=== PATIENT | female | born 1955 | race Caucasian/White ===

== ENCOUNTER 2020-03-02 15:34 | Inpatient (IN) | payer BC ==
[~2020-03-02] VITALS: Ht 165.1 cm; Wt 68.4 kg
[2020-03-02 16:03] LABS: BASOPHILS # (AUTO) 0.1 X10'3 (0-0.2); BASOPHILS % (AUTO) 0.7 % (0-1); EOSINOPHILS # (AUTO) 0.2 X10'3 (0-0.9); EOSINOPHILS % (AUTO) 2.1 % (0-6); HEMATOCRIT 44.9 % (35.0-45.0); LYMPHOCYTES # (AUTO) 2.9 X10'3 (1.1-4.8); LYMPHOCYTES % (AUTO) 30.7 % (21-51); MEAN CORPUSCULAR HGB CONC 33.3 g/dL (33.0-36.5); MEAN CORPUSCULAR VOLUME 90.1 FL (78-98); MEAN PLATELET VOLUME 8.2 FL (7.4-10.4); MONOCYTES # (AUTO) 0.5 X10'3 (0-0.9); NEUTROPHILS # (AUTO) 5.9 X10'3 (1.8-7.7); NEUTROPHILS % (AUTO) 61.5 % (42-75); PLATELET COUNT 298 X10'3 (140-440); RED BLOOD COUNT 4.99 X10'6 (4.20-5.60); RED CELL DISTRIBUTION WIDTH 14.1 % (11.5-14.5); WHITE BLOOD COUNT 9.5 X10'3 (4.5-11.0)
[2020-03-02 16:10] LABS: PARTIAL THROMBOPLASTIN TIME 27 SECONDS (22-32)
[2020-03-02 16:12] LABS: ALANINE AMINOTRANSFERASE 18 U/L (12-78); ALBUMIN 4.4 G/DL (3.4-5.0); ALBUMIN/GLOBULIN RATIO 1.3 (1.1-1.5); ALKALINE PHOSPHATASE 69 IU/L (46-116); ANION GAP 12 (8-16); ASPARTATE AMINO TRANSFERASE 14 U/L (10-37); BILIRUBIN,TOTAL 0.8 MG/DL (0.1-1.0); BLOOD UREA NITROGEN 10 MG/DL (7-18); BUN/CREATININE RATIO 13.5 (6.6-38.0); CALCIUM 9.8 MG/DL (8.5-10.1); CHLORIDE 105 MMOL/L (99-107); CREATININE 0.74 MG/DL (0.40-0.90); GLUCOSE 90 MG/DL (70-104); POTASSIUM 3.4 MMOL/L (3.5-5.1); SODIUM 144 MMOL/L (135-145); TOTAL CARBON DIOXIDE 27.4 MMOL/L (24-32); TOTAL PROTEIN 7.9 G/DL (6.4-8.2); eGFR 79 ML/MIN
[2020-03-02 16:15] LABS: TROPONIN I < 0.04 NG/ML (0.0-0.05)
[2020-03-02] MEDS ORDERED: aspirin 325mg tablet PO ONE (16:55)
[2020-03-02] MEDS ORDERED: atorvastatin 20mg tablet PO ONE (16:55)
--- NOTE | 2020-03-02 17:42 | NUR ---
Pt able to swallow with some difficulties, however no signs of aspiration. Pills crushed and mixed into applesauce which pt tolerated well.
[2020-03-02] MEDS ORDERED: HYDROcodone/acetaminophen 5mg/325mg tablet PO PRN (18:30)
[2020-03-02] MEDS ORDERED: magnesium hydroxide 30ml (MOM) UD suspension PO PRN (18:30)
[2020-03-02] MEDS ORDERED: magnesium 4gm in 100ml NS 100 ML IV PRN (18:30)
[2020-03-02] MEDS ORDERED: morphine 2 MG/ML inj. syringe IV PRN ×2 (18:30)
[2020-03-02] MEDS ORDERED: HYDROcodone/acetaminophen 10/325mg tab PO PRN (18:30)
[2020-03-02] MEDS ORDERED: acetaminophen 650mg rectal suppository RC PRN (18:30)
[2020-03-02] MEDS ORDERED: acetaminophen 325mg tablet PO PRN ×2 (18:30)
[2020-03-02] MEDS ORDERED: mag hydrox/Alum hydrox/simeth 30ml oral suspension PO PRN (18:30)
[2020-03-02] MEDS ORDERED: ondansetron/PF 4mg/2ml inj IV PRN (18:30)
[2020-03-02] MEDS ORDERED: magnesium 2GM in 50ml NS 50 ML IV PRN (18:30)
[2020-03-02] MEDS ORDERED: magnesium Cl slow-release 64mg tablet PO PRN (18:30)
[2020-03-02] MEDS ORDERED: bisacodyl 10mg suppository rectal RC PRN (18:30)
[2020-03-02] MEDS ORDERED: diphenhydrAMINE 25mg capsule PO PRN (18:30)
[2020-03-02] MEDS ORDERED: potassium CL 10mEq/100ml bag 100 ML IV PRN ×2 (18:30)
[2020-03-02] MEDS ORDERED: potassium Cl 20 mEq SR tablet PO PRN ×2 (18:30)
[2020-03-02 18:53] LABS: CLARITY,URINE SLIGHTLY CLOUDY (Clear); COLOR,URINE YELLOW (Yellow); GLUCOSE, URINE NEGATIVE (Neg); KETONES,URINE 15 mg/dl (Neg); LEUKOCYTE ESTERASE ,URINE SMALL (Neg); NITRITES, URINE NEGATIVE (Neg); OCCULT BLOOD,URINE TRACE-INTACT (Neg); PH,URINE 5.5 (4.8-8.0); PROTEIN,URINE NEGATIVE (Neg); UROBILINOGEN,URINE 0.2 E.U/dL (0.2-1.0)
[2020-03-02 18:54] LABS: UA COLLECTION TYPE CLN CATCH MIDSTREAM
[2020-03-02 19:10] LABS: CHOL/HDL RATIO 4.1 (0.00-4.99); CHOLESTEROL 286 MG/DL (0-200); HDL CHOLESTEROL 69 MG/DL (35-60); LDL CHOLESTEROL 179 MG/DL (50-100); TRIGLYCERIDES 96 MG/DL (20-135)
[2020-03-02 19:12] LABS: SQUAMOUS EPITHELIAL CELL,UR MANY /LPF (FEW)
[2020-03-02 19:13] LABS: BACTERIA,URINE 1+ /HPF (Neg); HYALINE CASTS 0-3 /LPF (NEGATIVE); RBC,URINE 0-2 /HPF (0-2)
[2020-03-02 19:14] LABS: WBC,URINE 0-4 /HPF (0-4)
[2020-03-02 19:16] LABS: HEMOGLOBIN A1C 5.7 % (4.5-6.2)
[2020-03-02] MEDS: normal saline 1000ml 1,000 ML IV SCH (19:37)
[2020-03-02] MEDS: K and/or MAG REPLACEMENT MC SCH (20:00)
[2020-03-02] MEDS: heparin, porcine 5000 units/ml vial SQ SCH (21:08)
[2020-03-03] MEDS ORDERED: LISI-600 PO (06:10)
--- NOTE | 2020-03-03 06:34 | NUR ---
swallow eval done again at this time,patient with delayed gag reflex when tongue depressor placed to posterior tongue,will notify
[2020-03-03 06:57] LABS: BASOPHILS # (AUTO) 0.1 X10'3 (0-0.2); BASOPHILS % (AUTO) 1.3 % (0-1); EOSINOPHILS # (AUTO) 0.2 X10'3 (0-0.9); EOSINOPHILS % (AUTO) 3.9 % (0-6); HEMATOCRIT 39.8 % (35.0-45.0); HEMOGLOBIN 13.2 g/dl (12.0-16.0); LYMPHOCYTES # (AUTO) 2.4 X10'3 (1.1-4.8); LYMPHOCYTES % (AUTO) 38.8 % (21-51); MEAN CORPUSCULAR HEMOGLOBIN 30.1 PG (27.0-31.0); MEAN CORPUSCULAR HGB CONC 33.2 g/dL (33.0-36.5); MEAN CORPUSCULAR VOLUME 90.9 FL (78-98); MEAN PLATELET VOLUME 8.2 FL (7.4-10.4); MONOCYTES # (AUTO) 0.4 X10'3 (0-0.9); MONOCYTES % (AUTO) 6.9 % (2-12); NEUTROPHILS % (AUTO) 49.1 % (42-75); PLATELET COUNT 240 X10'3 (140-440); RED BLOOD COUNT 4.38 X10'6 (4.20-5.60); RED CELL DISTRIBUTION WIDTH 14.1 % (11.5-14.5); WHITE BLOOD COUNT 6.2 X10'3 (4.5-11.0)
--- NOTE | 2020-03-03 07:42 | NUR ---
st paged to eval patient.
[2020-03-03] MEDS: heparin, porcine 5000 units/ml vial SQ SCH ×2 (07:50→19:43)
[2020-03-03] MEDS: atorvastatin 20mg tablet PO SCH (07:50)
[2020-03-03] MEDS: aspirin 81mg tablet.DR PO SCH (07:50)
[2020-03-03] MEDS: normal saline 1000ml 1,000 ML IV SCH ×2 (07:50→12:02)
[2020-03-03 07:59] LABS: ALANINE AMINOTRANSFERASE 16 U/L (12-78); ALBUMIN 3.7 G/DL (3.4-5.0); ALBUMIN/GLOBULIN RATIO 1.3 (1.1-1.5); ALKALINE PHOSPHATASE 61 IU/L (46-116); ANION GAP 8 (8-16); ASPARTATE AMINO TRANSFERASE 13 U/L (10-37); BILIRUBIN,TOTAL 0.8 MG/DL (0.1-1.0); BLOOD UREA NITROGEN 9 MG/DL (7-18); BUN/CREATININE RATIO 13.4 (6.6-38.0); CALCIUM 9.2 MG/DL (8.5-10.1); CHLORIDE 109 MMOL/L (99-107); CHOL/HDL RATIO 3.9 (0.00-4.99); CHOLESTEROL 224 MG/DL (0-200); CREATININE 0.67 MG/DL (0.40-0.90); GLUCOSE 82 MG/DL (70-104); HDL CHOLESTEROL 58 MG/DL (35-60); LDL CHOLESTEROL 149 MG/DL (50-100); MAGNESIUM 1.8 MG/DL (1.5-2.4); PHOSPHORUS 3.7 MG/DL (2.3-4.5); POTASSIUM 3.8 MMOL/L (3.5-5.1); SODIUM 146 MMOL/L (135-145); TOTAL CARBON DIOXIDE 29.4 MMOL/L (24-32); TOTAL PROTEIN 6.6 G/DL (6.4-8.2); TRIGLYCERIDES 80 MG/DL (20-135); eGFR 89 ML/MIN
[2020-03-03] MEDS: K and/or MAG REPLACEMENT MC SCH ×2 (08:00→19:40)
[2020-03-03] MEDS: CefTRIAXone/D5W-Rocephin 1gm 50 ML IV SCH (12:00)
[2020-03-03] MEDS: pantoprazole 40 MG vial IV SCH (12:00)
--- NOTE | 2020-03-03 15:24 | NUR ---
Patient in room ED 9. I have received report from Marlena AGUIAR, in the Ed and had the opportunity to ask questions and assume patient care.
[2020-03-03 16:08] VITALS: BP 139/71
[2020-03-03 18:00] VITALS: BP 132/66
--- NOTE | 2020-03-03 18:25 | NUR ---
Problems reprioritized. Patient report given, questions answered & plan of care reviewed with
[2020-03-03 22:00] VITALS: BP 141/66
[2020-03-04] VITALS (20 sets, daily range): BP systolic 80–142; BP diastolic 37–106
[2020-03-04 06:22] LABS: BASOPHILS # (AUTO) 0.1 X10'3 (0-0.2); EOSINOPHILS # (AUTO) 0.2 X10'3 (0-0.9); EOSINOPHILS % (AUTO) 2.3 % (0-6); HEMATOCRIT 38.7 % (35.0-45.0); HEMOGLOBIN 12.9 g/dl (12.0-16.0); LYMPHOCYTES # (AUTO) 2.3 X10'3 (1.1-4.8); MEAN CORPUSCULAR HEMOGLOBIN 30.7 PG (27.0-31.0); MEAN CORPUSCULAR HGB CONC 33.5 g/dL (33.0-36.5); MEAN CORPUSCULAR VOLUME 91.8 FL (78-98); MEAN PLATELET VOLUME 8.5 FL (7.4-10.4); MONOCYTES # (AUTO) 0.5 X10'3 (0-0.9); MONOCYTES % (AUTO) 6.2 % (2-12); NEUTROPHILS % (AUTO) 61.5 % (42-75); PLATELET COUNT 218 X10'3 (140-440); RED BLOOD COUNT 4.21 X10'6 (4.20-5.60); RED CELL DISTRIBUTION WIDTH 14.1 % (11.5-14.5); WHITE BLOOD COUNT 8.1 X10'3 (4.5-11.0)
--- NOTE | 2020-03-04 06:24 | NUR ---
Problems reprioritized. Patient report given, questions answered & plan of care reviewed with COSME Bustos.
[2020-03-04 06:36] LABS: ALANINE AMINOTRANSFERASE 13 U/L (12-78); ALBUMIN 3.3 G/DL (3.4-5.0); ALBUMIN/GLOBULIN RATIO 1.3 (1.1-1.5); ALKALINE PHOSPHATASE 53 IU/L (46-116); ANION GAP 13 (8-16); ASPARTATE AMINO TRANSFERASE 13 U/L (10-37); BILIRUBIN,TOTAL 0.7 MG/DL (0.1-1.0); BLOOD UREA NITROGEN 10 MG/DL (7-18); BUN/CREATININE RATIO 15.6 (6.6-38.0); CALCIUM 8.9 MG/DL (8.5-10.1); CHLORIDE 108 MMOL/L (99-107); CREATININE 0.64 MG/DL (0.40-0.90); GLUCOSE 63 MG/DL (70-104); MAGNESIUM 1.8 MG/DL (1.5-2.4); PHOSPHORUS 3.5 MG/DL (2.3-4.5); POTASSIUM 3.7 MMOL/L (3.5-5.1); SODIUM 144 MMOL/L (135-145); TOTAL CARBON DIOXIDE 23.5 MMOL/L (24-32); TOTAL PROTEIN 5.9 G/DL (6.4-8.2); eGFR > 90 ML/MIN
--- NOTE | 2020-03-04 06:57 | NUR ---
Patient in room MED 310. I have received report from COSME Tenorio and had the opportunity to ask questions and assume patient care.
[2020-03-04] MEDS: CefTRIAXone/D5W-Rocephin 1gm 50 ML IV SCH (07:36)
[2020-03-04] MEDS: atorvastatin 20mg tablet PO SCH (07:36)
[2020-03-04] MEDS: pantoprazole 40 MG vial IV SCH (07:36)
[2020-03-04] MEDS: K and/or MAG REPLACEMENT MC SCH ×2 (08:00→19:53)
[2020-03-04] MEDS: heparin, porcine 5000 units/ml vial SQ SCH (08:00)
[2020-03-04] MEDS: aspirin 81mg tablet.DR PO SCH (08:00)
[2020-03-04] MEDS ORDERED: LIDOcaine Viscous 15ml cup ONE (08:29)
[2020-03-04] MEDS ORDERED: fentaNYL/PF 50MCG/1 ML 2ML syringe ONE (08:29)
[2020-03-04] MEDS ORDERED: MIDAZolam 5mg/5ml vial ONE (08:29)
[2020-03-04] MEDS: normal saline 1000ml 1,000 ML IV SCH (10:30)
--- NOTE | 2020-03-04 14:32 | NUR ---
Pt admit with difficulty swallowing and c/o slurred speech x6 months and not eating well. Per [employer] DEVELOPER note lateral video swallow study performed and showed she has multiple swallow attempts, delayed swallow, and unable to clear valleculae; recommends NPO with possible alternative nutrition. EGD done, small hiatal hernia found with "no structural abnormalities in the hypopharynx or esophagus that would explain the patient's dysphagia" and possible neurologic origin, pt pending MRI, all per MD note. Recommend: 1. IF to receive a PEG for nutrition would recommend Jevity 1.2 at 70 ml/hr. 2. wt per rx 2. bowel care as needed 3. weight per rx Addendum: 03/04/20 at [address] Amended: Links added.
[2020-03-04 17:28] LABS: PARTIAL THROMBOPLASTIN TIME 28 SECONDS (22-32)
--- NOTE | 2020-03-04 18:31 | NUR ---
Problems reprioritized. Patient report given, questions answered & plan of care reviewed with COSME Hobbs.
--- NOTE | 2020-03-04 18:39 | NUR ---
Patient in room MED 310. I have received report from Juli AGUIAR and had the opportunity to ask questions and assume patient care.
[2020-03-04] MEDS ORDERED: dextrose 50%-water 50ml dispensing syringe IV ONE (19:50)
[2020-03-04] MEDS: dextrose 5%-1/2 normal saline 1,000 ML IV SCH (20:10)
[2020-03-05] VITALS (21 sets, daily range): BP systolic 124–152; BP diastolic 65–88
--- NOTE | 2020-03-05 06:32 | NUR ---
Problems reprioritized. Patient report given, questions answered & plan of care reviewed with Tanya AGUIAR.
[2020-03-05 07:17] LABS: BASOPHILS % (AUTO) 0.4 % (0-1); EOSINOPHILS # (AUTO) 0.2 X10'3 (0-0.9); EOSINOPHILS % (AUTO) 2.6 % (0-6); HEMATOCRIT 37.5 % (35.0-45.0); HEMOGLOBIN 12.5 g/dl (12.0-16.0); LYMPHOCYTES # (AUTO) 1.9 X10'3 (1.1-4.8); LYMPHOCYTES % (AUTO) 22.4 % (21-51); MEAN CORPUSCULAR HEMOGLOBIN 30.1 PG (27.0-31.0); MEAN CORPUSCULAR HGB CONC 33.3 g/dL (33.0-36.5); MEAN CORPUSCULAR VOLUME 90.3 FL (78-98); MEAN PLATELET VOLUME 8.4 FL (7.4-10.4); MONOCYTES # (AUTO) 0.7 X10'3 (0-0.9); MONOCYTES % (AUTO) 8.2 % (2-12); NEUTROPHILS # (AUTO) 5.8 X10'3 (1.8-7.7); NEUTROPHILS % (AUTO) 66.4 % (42-75); PLATELET COUNT 230 X10'3 (140-440); RED BLOOD COUNT 4.15 X10'6 (4.20-5.60); RED CELL DISTRIBUTION WIDTH 13.7 % (11.5-14.5); WHITE BLOOD COUNT 8.7 X10'3 (4.5-11.0)
[2020-03-05 07:41] LABS: ALANINE AMINOTRANSFERASE 14 U/L (12-78); ALBUMIN 3.2 G/DL (3.4-5.0); ALBUMIN/GLOBULIN RATIO 1.2 (1.1-1.5); ALKALINE PHOSPHATASE 53 IU/L (46-116); ANION GAP 9 (8-16); ASPARTATE AMINO TRANSFERASE 10 U/L (10-37); BILIRUBIN,TOTAL 0.9 MG/DL (0.1-1.0); BLOOD UREA NITROGEN 7 MG/DL (7-18); BUN/CREATININE RATIO 10.3 (6.6-38.0); CALCIUM 8.9 MG/DL (8.5-10.1); CHLORIDE 109 MMOL/L (99-107); CREATININE 0.68 MG/DL (0.40-0.90); GLUCOSE 90 MG/DL (70-104); MAGNESIUM 1.6 MG/DL (1.5-2.4); PHOSPHORUS 3.1 MG/DL (2.3-4.5); POTASSIUM 3.4 MMOL/L (3.5-5.1); SODIUM 144 MMOL/L (135-145); TOTAL CARBON DIOXIDE 26.1 MMOL/L (24-32); TOTAL PROTEIN 5.9 G/DL (6.4-8.2); eGFR 87 ML/MIN
[2020-03-05] MEDS: atorvastatin 20mg tablet PO SCH (08:00)
[2020-03-05] MEDS: aspirin 81mg tablet.DR PO SCH (08:00)
[2020-03-05] MEDS: K and/or MAG REPLACEMENT MC SCH ×2 (08:00→20:00)
[2020-03-05] MEDS: pantoprazole 40 MG vial IV SCH (08:00)
[2020-03-05] MEDS: dextrose 5%-1/2 normal saline 1,000 ML IV SCH ×2 (09:10→22:30)
[2020-03-05] MEDS ORDERED: fentaNYL/PF 50MCG/1 ML 2ML syringe ONE (09:51)
[2020-03-05] MEDS ORDERED: MIDAZolam 5mg/5ml vial ONE (09:51)
[2020-03-05] MEDS ORDERED: LIDOcaine Viscous 15ml cup ONE (09:51)
--- NOTE | 2020-03-05 12:44 | NUR ---
(02/22): TF consult: Pt s/p PEG placement today which can be used in 4 hours if pt is afebrile and is not having severe abdominal pain per MD note. TF recommendations below. Will continue to follow closely. (03/04): Pt admit with difficulty swallowing and c/o slurred speech x6 months and not eating well. 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 EGD done, small hiatal hernia found with "no structural abnormalities in the hypopharynx or esophagus that would explain the patient's dysphagia" and possible neurologic origin, pt pending MRI, all per MD note. Recommend: 1. Continuous TF via PEG using Jevity 1.2 with goal rate of 70 mL/hr. To begin at 30 mL/hr and advance by 20 mL Q8H as tolerated to goal rate. To provide: 1680 mL total volume/day, 2016 kcal, 93 g protein, and 1356 mL water 2. Additional 110 mL water flush Q4H 3. Prealbumin q Saturday/; daily weights 4. bowel care per rx HOME PEG BOLUS FEEDING RECS: 1. Bolus feedings using Jevity 1.5 or equivalent with goal rate of 340 mL four times a day. To begin at 120 mL/bolus and advance by 50 mL each bolus as tolerated until goal rate is met. Additional 70 mL water flush before and after each bolus feed 2. Additional 440 mL water daily 3. Outpatient RD to titrate to goal rate and make adjustments as needed according to patient's estimated nutrient needs Addendum: 03/05/20 at [address] Amended: Links added.
[2020-03-05] MEDS ORDERED: acetaminophen 325mg tablet PEG PRN ×2 (14:27→14:28)
[2020-03-05] MEDS ORDERED: mag hydrox/Alum hydrox/simeth 30ml oral suspension PEG PRN (14:29)
[2020-03-05] MEDS ORDERED: magnesium hydroxide 30ml (MOM) UD suspension PEG PRN (14:30)
[2020-03-05] MEDS ORDERED: potassium Cl 20 mEq SR tablet PEG PRN ×2 (14:30)
[2020-03-05] MEDS: CefTRIAXone/D5W-Rocephin 1gm 50 ML IV SCH (14:35)
[2020-03-05] MEDS ORDERED: diphenhydrAMINE 25 MG/10 ML UD oral solution PEG PRN (15:00)
--- NOTE | 2020-03-05 18:21 | NUR ---
1300 Pt did not get an BG check at GI LAB
[2020-03-05] MEDS ORDERED: magnesium Cl slow-release 64mg tablet PO PRN (20:25)
[2020-03-05] MEDS ORDERED: magnesium 4gm in 100ml NS 100 ML IV PRN (20:25)
[2020-03-05] MEDS ORDERED: potassium Cl 40MEQ/1/2NS 520ml 520 ML IV PRN (20:25)
[2020-03-05] MEDS ORDERED: potassium Cl 20 mEq SR tablet PO PRN (20:25)
[2020-03-05] MEDS: potassium Cl 20 mEq SR tablet PO PRN (21:03)
[2020-03-05] MEDS: lactobacillus rhamnosus 10,000 MMU CELLS/CAPSULE PO SCH (21:04)
[2020-03-05] MEDS: atorvastatin 20mg tablet PEG SCH (21:05)
[2020-03-06] MEDS: potassium Cl 20 mEq SR tablet PO PRN (00:45)
[2020-03-06 02:00] VITALS: BP 118/56
[2020-03-06 06:41] LABS: BASOPHILS % (AUTO) 0.3 % (0-1); EOSINOPHILS # (AUTO) 0.1 X10'3 (0-0.9); EOSINOPHILS % (AUTO) 0.4 % (0-6); HEMATOCRIT 38.3 % (35.0-45.0); HEMOGLOBIN 13.1 g/dl (12.0-16.0); LYMPHOCYTES # (AUTO) 2.1 X10'3 (1.1-4.8); LYMPHOCYTES % (AUTO) 12.3 % (21-51); MEAN CORPUSCULAR HEMOGLOBIN 30.7 PG (27.0-31.0); MEAN CORPUSCULAR HGB CONC 34.3 g/dL (33.0-36.5); MEAN CORPUSCULAR VOLUME 89.6 FL (78-98); MEAN PLATELET VOLUME 8.5 FL (7.4-10.4); MONOCYTES # (AUTO) 0.8 X10'3 (0-0.9); MONOCYTES % (AUTO) 4.5 % (2-12); NEUTROPHILS # (AUTO) 13.9 X10'3 (1.8-7.7); NEUTROPHILS % (AUTO) 82.5 % (42-75); PLATELET COUNT 226 X10'3 (140-440); RED BLOOD COUNT 4.27 X10'6 (4.20-5.60); RED CELL DISTRIBUTION WIDTH 13.8 % (11.5-14.5); WHITE BLOOD COUNT 16.9 X10'3 (4.5-11.0)
[2020-03-06 07:04] LABS: ALANINE AMINOTRANSFERASE 19 U/L (12-78); ALBUMIN 3.3 G/DL (3.4-5.0); ALBUMIN/GLOBULIN RATIO 1.1 (1.1-1.5); ALKALINE PHOSPHATASE 54 IU/L (46-116); ANION GAP 8 (8-16); ASPARTATE AMINO TRANSFERASE 20 U/L (10-37); BILIRUBIN,TOTAL 0.8 MG/DL (0.1-1.0); BLOOD UREA NITROGEN 5 MG/DL (7-18); BUN/CREATININE RATIO 8.3 (6.6-38.0); CALCIUM 9.2 MG/DL (8.5-10.1); CHLORIDE 108 MMOL/L (99-107); GLUCOSE 145 MG/DL (70-104); MAGNESIUM 1.6 MG/DL (1.5-2.4); PHOSPHORUS 2.5 MG/DL (2.3-4.5); POTASSIUM 3.5 MMOL/L (3.5-5.1); SODIUM 143 MMOL/L (135-145); TOTAL CARBON DIOXIDE 27.3 MMOL/L (24-32); TOTAL PROTEIN 6.3 G/DL (6.4-8.2); eGFR > 90 ML/MIN
[2020-03-06 07:38] VITALS: BP 149/76
[2020-03-06] MEDS: K and/or MAG REPLACEMENT MC SCH ×4 (07:47→20:00)
[2020-03-06] MEDS: CefTRIAXone/D5W-Rocephin 1gm 50 ML IV SCH (08:47)
[2020-03-06] MEDS: pantoprazole 40 MG vial IV SCH (08:47)
[2020-03-06] MEDS: lactobacillus rhamnosus 10,000 MMU CELLS/CAPSULE PO SCH (08:57)
[2020-03-06] MEDS: aspirin 81mg tab.chew PEG SCH ×2 (08:57→11:30)
[2020-03-06 11:00] VITALS: BP 128/67
--- NOTE | 2020-03-06 11:21 | NUR ---
PAGER ID: [phone] MESSAGE: [id number] Chris tube feed at goal, change or dc dextrose iv fluid? CESAR [id number]
[2020-03-06] MEDS: lactobacillus rhamnosus 10,000 MMU CELLS/CAPSULE GT SCH ×2 (11:30→21:36)
[2020-03-06] MEDS: dextrose 5%-1/2 normal saline 1,000 ML IV SCH (11:50)
[2020-03-06 18:00] VITALS: BP 139/79
--- NOTE | 2020-03-06 18:35 | NUR ---
Report to Day AGUIAR
[2020-03-06] MEDS: atorvastatin 20mg tablet PEG SCH (21:36)
[2020-03-06 22:00] VITALS: BP 131/75
[2020-03-07 02:00] VITALS: BP 132/64
[2020-03-07] MEDS: dextrose 5%-1/2 normal saline 1,000 ML IV SCH ×3 (04:02→17:24)
[2020-03-07 06:00] VITALS: BP 103/57
[2020-03-07 06:21] LABS: BASOPHILS % (AUTO) 0.4 % (0-1); EOSINOPHILS # (AUTO) 0.2 X10'3 (0-0.9); EOSINOPHILS % (AUTO) 2.1 % (0-6); HEMATOCRIT 36.7 % (35.0-45.0); HEMOGLOBIN 12.5 g/dl (12.0-16.0); LYMPHOCYTES # (AUTO) 2.3 X10'3 (1.1-4.8); LYMPHOCYTES % (AUTO) 24.4 % (21-51); MEAN CORPUSCULAR HEMOGLOBIN 30.7 PG (27.0-31.0); MEAN CORPUSCULAR VOLUME 90.4 FL (78-98); MEAN PLATELET VOLUME 8.8 FL (7.4-10.4); MONOCYTES # (AUTO) 0.7 X10'3 (0-0.9); MONOCYTES % (AUTO) 7.5 % (2-12); NEUTROPHILS # (AUTO) 6.2 X10'3 (1.8-7.7); NEUTROPHILS % (AUTO) 65.6 % (42-75); PLATELET COUNT 219 X10'3 (140-440); RED BLOOD COUNT 4.06 X10'6 (4.20-5.60); WHITE BLOOD COUNT 9.5 X10'3 (4.5-11.0)
[2020-03-07 06:38] LABS: ALANINE AMINOTRANSFERASE 24 U/L (12-78); ALKALINE PHOSPHATASE 52 IU/L (46-116); ANION GAP 6 (8-16); ASPARTATE AMINO TRANSFERASE 22 U/L (10-37); BILIRUBIN,TOTAL 0.7 MG/DL (0.1-1.0); BLOOD UREA NITROGEN 7 MG/DL (7-18); BUN/CREATININE RATIO 10.9 (6.6-38.0); CALCIUM 9.1 MG/DL (8.5-10.1); CHLORIDE 108 MMOL/L (99-107); CREATININE 0.64 MG/DL (0.40-0.90); GLUCOSE 113 MG/DL (70-104); MAGNESIUM 1.6 MG/DL (1.5-2.4); POTASSIUM 3.2 MMOL/L (3.5-5.1); PREALBUMIN 10.7 MG/DL (19-36); SODIUM 144 MMOL/L (135-145); TOTAL CARBON DIOXIDE 29.7 MMOL/L (24-32); TOTAL PROTEIN 6.1 G/DL (6.4-8.2); eGFR > 90 ML/MIN
--- NOTE | 2020-03-07 07:02 | NUR ---
Patient in room PCU 3026. I have received report from COSME KHAN and had the opportunity to ask questions and assume patient care.
[2020-03-07] MEDS: K and/or MAG REPLACEMENT MC SCH ×3 (08:00→20:00)
[2020-03-07] MEDS: lactobacillus rhamnosus 10,000 MMU CELLS/CAPSULE GT SCH ×2 (08:44→20:16)
[2020-03-07] MEDS: pantoprazole 40 MG vial IV SCH (08:45)
[2020-03-07] MEDS: aspirin 81mg tab.chew PEG SCH (08:45)
[2020-03-07] MEDS: CefTRIAXone/D5W-Rocephin 1gm 50 ML IV SCH (08:45)
[2020-03-07] MEDS ORDERED: POTASSIUM BICARB 20meq eff tab 20 MEQ TABLET.EFF PO PRN (10:10)
[2020-03-07] MEDS: POTASSIUM BICARB 20meq eff tab 20 MEQ TABLET.EFF PO PRN ×3 (10:25→20:17)
[2020-03-07 11:00] VITALS: BP 127/81
[2020-03-07 15:00] VITALS: BP 106/65
--- NOTE | 2020-03-07 15:42 | NUR ---
DREW TC: Pt needs to be transitioned to bolus feeds this admit prior to discharge home to ensure tolerance and MD requests RD recs. Noted wt change from initial 75kg bed scale to current 65.8kg bed scale appearing more consistent at this time; will use for TF recs. Prior TF consult remains active; MD notified of updated bolus recs and home recs below. QUINCY d/w RN regarding updated TF recs and pt home TF recs placed in chart. Pt previously tolerating continuous TF w/ GRV WNL. Na 144 w/ 110ml Q4 free water w/ continuous feeds though currently at 50ml/hr and not yet at goal. Pt also receiving D5/NS at 75ml/hr. LBM 03/02; QUINCY [employer] regarding routine bowel care this admit. First PALB result 10.7. Will monitor for TF tolerance and additional protein/hydration needs. Recommend: 1. Bolus TF via PEG QID at 800, 1200, 1600, and 2000 using Jevity 1.2 at 345ml bolus goal. Initiate at 120ml bolus and advance 75ml per bolus to goal as tolerated. Water flush 75ml before and after each bolus. In total; to provide 1380ml volume, 1656 kcals, 1718ml free water, and 77g protein. 2. routine bowel care 3. Prealbumin q Saturday/; daily weights 4. monitor for bolus EN tolerance and additional hydration needs pending serum Na and PALB HOME PEG BOLUS FEEDING RECS: 1. Bolus feedings using Jevity 1.5 or equivalent with goal rate of 340 mL four times a day. To begin at 120 mL/bolus and advance by 50 mL each bolus as tolerated until goal rate is met. Additional 70 mL water flush before and after each bolus feed 2. Additional 440 mL water daily 3. Outpatient RD to titrate to goal rate and make adjustments as needed according to patient's estimated nutrient needs Addendum: 03/07/20 at [address] Amended: Links added.
[2020-03-07 18:00] VITALS: BP 106/61
--- NOTE | 2020-03-07 18:35 | NUR ---
Problems reprioritized. Patient report given, questions answered & plan of care reviewed with COSME JOSE.
[2020-03-07] MEDS: atorvastatin 20mg tablet PEG SCH (20:17)
[2020-03-07 22:00] VITALS: BP 109/52
[2020-03-08 02:00] VITALS: BP 98/52
[2020-03-08 06:00] VITALS: BP 114/59
--- NOTE | 2020-03-08 06:19 | NUR ---
Patient in room PCU 3026. I have received report from gordy sanders and had the opportunity to ask questions and assume patient care.
--- NOTE | 2020-03-08 06:21 | NUR ---
Report given to Stepan AGUIAR.
[2020-03-08] MEDS: dextrose 5%-1/2 normal saline 1,000 ML IV SCH ×2 (06:45→20:46)
[2020-03-08 07:33] LABS: MAGNESIUM 1.7 MG/DL (1.5-2.4)
[2020-03-08] MEDS: K and/or MAG REPLACEMENT MC SCH ×2 (08:00→20:00)
[2020-03-08] MEDS: pantoprazole 40 MG vial IV SCH (09:06)
[2020-03-08] MEDS: lactobacillus rhamnosus 10,000 MMU CELLS/CAPSULE GT SCH ×2 (09:06→20:21)
[2020-03-08] MEDS: CefTRIAXone/D5W-Rocephin 1gm 50 ML IV SCH (09:06)
[2020-03-08] MEDS: aspirin 81mg tab.chew PEG SCH (09:08)
[2020-03-08] MEDS ORDERED: ASPI-1265 PEG (10:40)
[2020-03-08] MEDS ORDERED: ATOR20TA66 PEG (10:40)
[2020-03-08 11:00] VITALS: BP 118/48
[2020-03-08 15:00] VITALS: BP 130/71
[2020-03-08 18:00] VITALS: BP 109/58
--- NOTE | 2020-03-08 18:13 | NUR ---
Problems reprioritized. Patient report given, questions answered & plan of care reviewed with COSME JOSE.
[2020-03-08] MEDS: atorvastatin 20mg tablet PEG SCH (20:21)
[2020-03-08 22:00] VITALS: BP 111/45
[2020-03-09] MEDS ORDERED: diphenhydrAMINE 50 mg/ml inj IV PRN (00:05)
[2020-03-09 02:00] VITALS: BP 124/52
--- NOTE | 2020-03-09 06:24 | NUR ---
Report given to Twyla AGUIAR.
[2020-03-09 07:00] VITALS: BP 106/54
[2020-03-09] MEDS: aspirin 81mg tab.chew PEG SCH (07:43)
[2020-03-09] MEDS: lactobacillus rhamnosus 10,000 MMU CELLS/CAPSULE GT SCH (07:44)
[2020-03-09] MEDS: pantoprazole 40 MG vial IV SCH (07:44)
[2020-03-09] MEDS: K and/or MAG REPLACEMENT MC SCH (08:00)
--- NOTE | 2020-03-09 10:50 | NUR ---
patient A&Ox4 instructed this am how to do bolus feed via peg tube. patient demonstrated understanding and skill in administering 345mls jevity 1.2. patient seen by Dr vidales is for DC today. daughter waiting on patients DC for ride [place] [employer] patient . VSS. will continue to monitor
--- NOTE | 2020-03-09 12:17 | NUR ---
patient Dc home with tube feeding supplies. All DC instructions given to patient . patient DC home via private car with family member to home. 1200hrs
== END 2020-03-09 11:22 | disposition home or self-care (01) | DRG 392 ==
LOC: ER 15:35 → ED HOLD 18:27 → MED 3N 03-03 15:30 → PCU 3S 03-06 05:50
PROVIDERS: ADMIT Family Medicine; ATTEND Family Medicine
PROC: 0DJ08ZZ Inspection of Upper Intestinal Tract, Via Natural or Artificial Opening Endoscopic (ICD-10-PCS; principal; 2020-03-04)
PROC: 0DH63UZ Insertion of Feeding Device into Stomach, Percutaneous Approach (ICD-10-PCS; 2020-03-05)
DX: R13.12 Dysphagia, oropharyngeal phase (principal); N39.0 Urinary tract infection, site not specified; E78.5 Hyperlipidemia, unspecified; E87.6 Hypokalemia; F17.200 Nicotine dependence, unspecified, uncomplicated; I10 Essential (primary) hypertension; G70.9 Myoneural disorder, unspecified; K44.9 Diaphragmatic hernia without obstruction or gangrene; Z79.82 Long term (current) use of aspirin; Z79.899 Other long term (current) drug therapy; Z80.3 Family history of malignant neoplasm of breast; Z83.3 Family history of diabetes mellitus; Z91.19 Patient's noncompliance with other medical treatment and regimen
CPT/HCPCS: 36415; 43235; 43246; 70450; 70544; 70551; 71045; 74230; 80053; 80061; 81001; 82607; 82948; 83036; 83735; 84100; 84132; 84134; 84443; 84484; 85025; 85610; 85651; 85730; 87081; 92507; 92508; 92616; 93005; 93306; 93308; 93880; 99152; 99153; 99285; A4620; B4087; C9113; G0378; J0696; J1200; J1644; J2250; J2270; J3010; J7030; J7040